=== PATIENT | male | born 1955 | race Caucasian/White ===

== ENCOUNTER → 2018-12-07 08:36 | Outpatient (CLI) | payer BC, SELFPAY ==
--- NOTE | 2018-12-07 08:41 | NM_ITS ---
NM bone 3 phase CLINICAL INDICATION: Left knee pain, prior knee replacement ITS.REASON: LT KNEE PAIN ORDERING PHYSICIAN: Jordon Cabrera PATIENT AGE: 63 years Comparison: 12/07/2018 DOSE: 26.0 mCi technetium MDP IV FINDINGS: Blood flow images demonstrate increased blood flow to the lateral aspect of the left knee.. Blood pool images also shows focal increased activity to the lateral aspect of the left knee at the femoral component.. Delayed images show increased activity along the knee prosthesis at the distal aspect of the femur and at the proximal aspect of the tibia with photopenic areas at the knee prosthesis bilaterally. Radiograph of the left knee demonstrates a total knee prosthesis in place in good alignment. No fracture or dislocation. There is a faint zone of lucency at the tip of the tibial component. There is some dystrophic calcification. IMPRESSION: There is a total left knee prosthesis present. There is increased activity on all 3 phases at the lateral aspect of the femoral component which may be seen with infection of the prosthesis or focal loosening. Please correlate with clinical parameters.
--- NOTE | 2018-12-07 08:42 | XR_ITS ---
XR knee LT 3V HISTORY: Left knee pain, prior knee replacement ITS.REASON: LT KNEE PAIN ORDERING PHYSICIAN: Jrodon Cabrera PATIENT AGE: 63 years COMPARISON: None FINDINGS: A total knee prosthesis in place in good alignment. No fracture or dislocation. There is a faint zone of lucency at the tip of the tibial component. There is some dystrophic calcification. IMPRESSION: Status post total knee replacement with no acute finding
[2018-12-07 10:07] LABS: Basophils % 0.5 % (0.1-2.0); Eosinophils # 0.1 K/mm3 (0.0-0.4); Eosinophils % 1.8 % (0.1-12.0); Hematocrit 53.9 % (42.0-52.0); Hemoglobin 17.4 g/dL (14.1-18.0); Lymphocytes # 1.9 K/mm3 (0.7-4.5); Lymphocytes % 28.8 % (10-50); Mean Corpuscular HGB Conc 32.3 g/dL (31.8-35.4); Mean Corpuscular Hemoglobin 28.1 pg (27.0-31.2); Mean Corpuscular Volume 86.9 fl (80-94); Mean Platelet Volume 7.2 fl (7.4-10.4); Monocytes # 0.5 K/mm3 (0.1-1.0); Monocytes % 7.5 % (1.7-9.3); Neutrophils # 3.9 K/mm3 (1.8-7.8); Neutrophils % 61.2 % (37.0-80.0); Platelet Count 126 K/mm3 (142-424); Red Cell Distribution Width 15.3 % (11.5-17.5); White Blood Count 6.4 K/mm3 (4.8-10.8)
[2018-12-07 10:57] LABS: Erythrocyte Sedimentation Rate 3 mm/hr (0-20)
[2018-12-07 12:16] LABS: C-Reactive Protein < 0.0 mg/L (0.0-0.9)
== END ==
PROVIDERS: PCP Orthopaedic Surgery; Visit Provider Orthopaedic Surgery
DX: M25.562 Pain in left knee (principal)
CPT/HCPCS: 36415; 73562; 78315; 85025; 85651; 86140; A9503

== ENCOUNTER → 2022-12-21 08:18 | Outpatient (CLI) | payer MEDICARE, OTHER, SELFPAY ==
--- NOTE | 2022-12-21 08:28 | IR_ITS ---
FINAL REPORT CLINICAL HISTORY: SHOULDER, FT 19 SEC FINDINGS: Arthrogram Left shoulder injection for CTarthrogram HISTORY: Left shoulder pain. PROCEDURE: After informed consent was obtained, a time-out was performed. Utilizing local anesthesia and sterile technique, with direct fluoroscopic guidance, access to the joint was obtained . A small amount of contrast was injected to confirm needle tip location. Additional Isovue contrast was injected. IMPRESSION: Status post injection for CT arthrogram without immediate complication. Please see CT report. FLUOROSCOPY TIME: 19 seconds Films reviewed , interpreted and dictated by Dr. Morrison. Transcribed by Barney Walker PA-C. Reviewed, Interpreted and Dictated by Brad Morrison MD Transcribed by SNEHA Duran Authenticated and [facility]
--- NOTE | 2022-12-21 08:59 | CT_ITS ---
FINAL REPORT TECHNIQUE: Axial images through the left shoulder were performed by computed tomography. Sagittal and coronal reconstruction images were performed. This study was performed with techniques to keep radiation doses as low as reasonably achievable (ALARA). Individualized dose reduction techniques using automated exposure control or adjustment of mA and/or kV according to the patient's size were employed. CLINICAL HISTORY: PAIN, ARTHROGRAM COMPARISON: None FINDINGS: There is contrast seen within the shoulder joint space. There is no abnormal communication between the joint space in the subacromial/subdeltoid bursa. The humeral head relates to the bony glenoid in a normal fashion. The posterior labrum appears intact. In the anterior labrum there is a linear defect concerning for anterior labral tear best seen on images 32 and 33 series 4. Biceps tendon is unremarkable. IMPRESSION: Linear defect anterior labrum concerning for anterior labral tear peer No evidence of supraspinatus tendon tear. Reviewed, Interpreted and Dictated by Brad Morrison MD Transcribed by Margaret Solis Authenticated and [facility]
== END ==
PROVIDERS: PCP Orthopaedic Surgery; Visit Provider Orthopaedic Surgery
DX: M25.512 Pain in left shoulder (principal)
CPT/HCPCS: 73040; 73200; Q9967